=== PATIENT | male | born 1960 | race Hispanic/Latino ===

== ENCOUNTER → 2019-03-04 | Outpatient (CLI) | payer MEDICARE | END | disposition home or self-care (01) | LOC: SHCH 08:02 | PROVIDERS: ATTEND Internal Medicine Cardiovascular Disease | DX: I06.9 Rheumatic aortic valve disease, unspecified (principal); I10 Essential (primary) hypertension; I67.9 Cerebrovascular disease, unspecified | CPT/HCPCS: 93306 ==